=== PATIENT | female | born 1965 | race Caucasian/White ===

== ENCOUNTER 2024-11-30 09:01 | Outpatient (CLI) | payer BC, SELFPAY ==
--- NOTE | 2024-11-30 09:15 | CRLHL7_ITS ---
For Patients: As a result of the Century Cures Act, medical imaging exams and procedure reports are released immediately into your electronic medical record. You may view this report before your referring provider. If you have questions, please contact your health care provider. BILATERAL DIGITAL SCREENING MAMMOGRAM WITH COMPUTER-AIDED DETECTION AND TOMOSYNTHESIS CLINICAL HISTORY: : Routine screening exam. COMPARISON: None TECHNIQUE: Digital mammogram in CC and MLO projections including computer-aided detection (CAD). Tomosynthesis was used in this interpretation. BREAST COMPOSITION: There are scattered areas of fibroglandular density. FINDINGS: RIGHT Breast: No suspicious findings LEFT Breast: Focal nodular density lateral left breast 6 cm from the nipple. IMPRESSION: LEFT breast asymmetry/mass. RECOMMENDATIONS: Additional mammographic views of the LEFT breast including 3D spot compression CC/MLO. LEFT breast ultrasound may also be required. The [facility] will contact the patient. A lay language report of this examination will be provided to the patient. BI-RADS Category 0: Incomplete: Need Additional Imaging Evaluation Dictated by Laz Camarena MD @ 12/07/2024 1:03:18 PM Dictated by: Laz Camarena MD @ 12/07/2024 13:03:20 (Electronically Signed)
== END 2024-11-30 09:02 | disposition home or self-care (01) ==
LOC: MAMMO 09:01
PROVIDERS: PCP Family Medicine; Visit Provider Family Medicine
DX: Z12.31 Encounter for screening mammogram for malignant neoplasm of breast (principal); N63.20 Unspecified lump in the left breast, unspecified quadrant
CPT/HCPCS: 77063; 77067

== ENCOUNTER 2025-01-05 08:31 | Outpatient (CLI) | payer BC, SELFPAY ==
--- NOTE | 2025-01-05 08:45 | CRLHL7_ITS ---
For Patients: As a result of the Cures Act, medical imaging exams and procedure reports are released immediately into your electronic medical record. You may view this report before your referring provider. If you have questions, please contact your health care provider. DIGITAL DIAGNOSTIC LEFT MAMOGRAM USING TOMOSYNTHESIS LEFT BREAST ULTRASOUND CLINICAL HISTORY: LEFT breast mass/asymmetry. COMPARISON: 11/30/2024, 09/13/2020, 04/12/2018, 03/29/2017. TECHNIQUE: Digital LEFT mammogram in two projections. Tomosynthesis was used in this interpretation. Real-time ultrasound imaging of LEFT breast with imaging documentation. BREAST COMPOSITION: There are scattered areas of fibroglandular density. FINDINGS: 3D spot compression CC/MLO. Persistent nodular density noted in the lateral aspect of the LEFT breast without architectural distortion or suspicious calcifications. Targeted LEFT breast ultrasound performed at 2 o`clock 6 cm from the nipple. At posterior depth there is a benign lymph node measuring 4 x 3 x 6 millimeters. No abnormal vascularity. IMPRESSION: Benign intramammary lymph node posterior depth LEFT breast 2 o`clock 6 cm from the nipple measuring 6 millimeters. No suspicious findings. RECOMMENDATIONS: Routine screening mammography. A lay language report of this examination will be provided to the patient. BI-RADS Category 2: Benign Dictated by Laz Camarena MD @ 01/05/2025 10:24:25 AM /Dictated by: Laz Camarena MD @ 01/05/2025 10:24:00 AM (Electronically Signed)
--- NOTE | 2025-01-05 09:15 | CRLHL7_ITS ---
For Patients: As a result of the Cures Act, medical imaging exams and procedure reports are released immediately into your electronic medical record. You may view this report before your referring provider. If you have questions, please contact your health care provider. SEE DIGITAL DIAGNOSTIC LEFT MAMMOGRAM PERFORMED SAME DAY CRL:[email or web address]/Dictated by: Laz Camarena MD @ 01/05/2025 10:24:00 AM (Electronically Signed)
== END 2025-01-05 08:32 | disposition home or self-care (01) ==
LOC: MAMMO 08:31
PROVIDERS: PCP Family Medicine; Visit Provider Family Medicine
DX: N63.20 Unspecified lump in the left breast, unspecified quadrant (principal); R92.8 Other abnormal and inconclusive findings on diagnostic imaging of breast
CPT/HCPCS: 76642; 77065; G0279